=== PATIENT | male | born 1980 | race Caucasian/White ===

== ENCOUNTER 2017-04-13 11:28 | Emergency (ER) | payer OTHER ==
[~2017-04-13] VITALS: Ht 170.2 cm; Wt 84.1 kg
[2017-04-13] MEDS ORDERED: CLARITIN10 M6 (11:40)
== END 2017-04-13 12:32 ==
LOC: EDMED → EDBD 11:28 → EDMED 11:28
DX: F41.0 Panic disorder [episodic paroxysmal anxiety] (principal); T65.0X1A Toxic effect of cyanides, accidental (unintentional), initial encounter